=== PATIENT | female | born 1970 ===

== ENCOUNTER 2016-11-27 18:30 | Emergency (ER) | payer OTHER ==
[2016-11-27 18:42] VITALS: BP 132/71
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
[2016-11-27] MEDS ORDERED: MOBIC15 M1 PO (21:16)
== END 2016-11-27 21:24 ==
LOC: ERH 18:30
DX: S39.012A Strain of muscle, fascia and tendon of lower back, initial encounter (principal); S16.1XXA Strain of muscle, fascia and tendon at neck level, initial encounter; V49.50XA Passenger injured in collision with unspecified motor vehicles in traffic accident, initial encounter
CPT/HCPCS: 81025